=== PATIENT | male | born 1970 | race Caucasian/White ===

== ENCOUNTER → 2018-01-31 | Day surgery (SDC) | payer OTHER ==
[~2018-01-31] MED LIST: IV RINGERS,LACTATED 1000ML 1,000 ML IV SCH; PROPOFOL 40 ML IV ONE
[2018-01-31 13:07] VITALS: BP 146/79
--- NOTE | 2018-02-01 15:08 | PATHOLOGY ---
[facility] Accession Number: [id number] . 01 Material submitted: . GASTRIC POLYP . 01 Clinical history: . Gastric polyps, Hx Reid's . 02 Diagnosis: Segments of gastric body mucosa, gastric polyps: - Fundic gland polyps. . ([facility]; 02/01/18) [facility]/02/01/2018 . 02 Comment: There are no adenomatous changes or evidence of malignancy. . ([facility]:mm; 02/01/18) . 02 Electronically signed: . Elmer Thomas MD, Pathologist NPI- [id number] . 01 Gross description: . Received in formalin labeled "Ryan Nayak, gastric polyp," are eight polypoid segments of mack soft tissue measuring 2.5 x 2.4 x 0.8 cm in aggregate dimensions. The surgical margins are inked and the specimen are sectioned perpendicular to the margins and entirely submitted in cassette A1 through A3. ([facility]; 01/31/2018) TOB/TOB . 02 Pathologist provided ICD-10: K31.7 . 02 CPT . 651398 Specimen Comment: A courtesy copy of this report has been sent to Specimen Comment: [phone]. Specimen Comment: Report sent to Specimen Comment: A duplicate report has been generated due to demographic updates. Performed at: 01 [facility] [address] [facility] [address], [place] [id number] MD Johann Macias MD Phone: [phone] Performed at: 02 [facility] [address] [place], [place] [id number] MD Elmer Thomas MD Phone: [phone]
== END | disposition home or self-care (01) ==
LOC: SURG 11:14
PROVIDERS: ATTEND Internal Medicine
DX: K31.7 Polyp of stomach and duodenum (principal)
CPT/HCPCS: 88305; J2704; 43239; 43251